=== PATIENT | male | born 1925 | race American Indian/Alaskan Native ===

== ENCOUNTER 2016-05-16 06:57 | Inpatient (IN) | payer MEDICARE ==
[~2016-05-16] VITALS: Ht 167.6 cm; Wt 50.2 kg
[~2016-05-16 06:57] MED LIST: ASPI-621 PO; ATOR40TA78 PO; CARV12.52 PO; CARV6.252 PO; CLOP75TA PO; ENOX40SY4 SQ; ERTA1VIA IV; FINA5TAB4 PO; FOSF3PAC PO; FURO20TA3 PO; Ferrous Sulfate PO; LEVO100T5 PO; LEVO75TA PO; LISI-167 PO; LISI-170 PO; LISI5TAB7 PO; NITR0.4T SL; POTA20TA14 PO; SIMV10TA3 PO; TAMS-11 PO
[2016-05-16 08:42] LABS: BLOOD UREA NITROGEN 17 mg/dL (7-18)
[2016-05-16 08:47] LABS: IS PT STATUS REG ER OR PRE ER? YES
[2016-05-16] MEDS ORDERED: BISACODYL 10 MG SUPP PR PRN (10:30)
[2016-05-16] MEDS ORDERED: DOCUSATE 100 MG CAPSULE PO PRN (10:30)
[2016-05-16] MEDS ORDERED: LABETALOL 5MG/ML, 20ML IV PRN (10:30)
[2016-05-16] MEDS ORDERED: ONDANSETRON 2MG/ML, 2ML IVP PRN (10:30)
[2016-05-16] MEDS ORDERED: ACETAMINOPHEN 325 MG TABLET PO PRN (10:30)
[2016-05-16] MEDS ORDERED: HYDROcodone/APAP 5/325 TABLET PO PRN (10:30)
[2016-05-16] MEDS ORDERED: MORPHINE SULFATE 4 MG/ML, 1ML IVPush PRN (10:30)
[2016-05-16] MEDS ORDERED: POLYETHYLENE GLYCOL 17 GM PACKET PO PRN (10:30)
[2016-05-16 10:45] VITALS: BP 157/81
[2016-05-16] MEDS: FUROSEMIDE 40 MG/4 ML IV SCH (11:10)
[2016-05-16] MEDS: ENOXAPARIN 40 MG/0.4 ML SQ SCH (11:10)
[2016-05-16 11:52] LABS: IS PT STATUS REG ER OR PRE ER? NO
[2016-05-16 12:44] VITALS: BP 169/75
[2016-05-16 17:06] LABS: IS PT STATUS REG ER OR PRE ER? NO
[2016-05-16] MEDS ORDERED: CARV3.1212 PO (19:57)
[2016-05-16] MEDS ORDERED: CEPH-376 PO (19:57)
[2016-05-16] MEDS ORDERED: POTA10TA11 PO (19:57)
[2016-05-16] MEDS ORDERED: LEVO100T5 PO (19:57)
[2016-05-16 20:06] VITALS: BP 107/64
[2016-05-16] MEDS: POTASSIUM CHLORIDE 20 MEQ TAB.ER.PRT PO SCH (23:42)
[2016-05-16] MEDS: SODIUM CHLORIDE FLUSH 10ML SYR IVF SCH (23:43)
[2016-05-16] MEDS: CARVEDILOL 6.25 MG TABLET PO SCH (23:43)
[2016-05-16] MEDS: LISINOPRIL 10 MG TABLET PO SCH (23:43)
[2016-05-16 23:56] LABS: PATH.CAST-FLAG NOT PRESENT; SPERM-FLAG NOT PRESENT; SRC-FLAG NOT PRESENT; XTAL-FLAG NOT PRESENT; YLC-FLAG NOT PRESENT
[2016-05-17 01:28] VITALS: BP 97/61
[2016-05-17 01:57] LABS: BLOOD UREA NITROGEN 24 mg/dL (7-18)
[2016-05-17] MEDS: CEFTRIAXONE PMX 1GM/50ML 50 ML IV SCH (03:06)
[2016-05-17] MEDS: CARVEDILOL 6.25 MG TABLET PO SCH (06:00)
[2016-05-17 06:36] VITALS: BP 105/63
[2016-05-17] MEDS: FUROSEMIDE 40 MG/4 ML IV SCH (10:32)
[2016-05-17] MEDS: POTASSIUM CHLORIDE 20 MEQ TAB.ER.PRT PO SCH ×2 (10:32→16:38)
[2016-05-17] MEDS: ENOXAPARIN 40 MG/0.4 ML SQ SCH (10:33)
[2016-05-17] MEDS: LISINOPRIL 10 MG TABLET PO SCH (10:33)
[2016-05-17] MEDS: SODIUM CHLORIDE FLUSH 10ML SYR IVF SCH ×2 (10:33→21:00)
[2016-05-17 10:34] VITALS: BP 77/44
[2016-05-17 12:18] VITALS: BP 85/54
[2016-05-17 13:14] VITALS: BP 102/66
[2016-05-17 19:31] VITALS: BP 101/58
[2016-05-18 00:30] VITALS: BP 109/67
[2016-05-18] MEDS: CEFTRIAXONE PMX 1GM/50ML 50 ML IV SCH (01:39)
[2016-05-18] MEDS ORDERED: LABETALOL 5MG/ML, 20ML IV PRN (03:52)
[2016-05-18 07:13] LABS: BLOOD UREA NITROGEN 31 mg/dL (7-18)
[2016-05-18 07:49] VITALS: BP 98/49
[2016-05-18] MEDS: FUROSEMIDE 40 MG/4 ML IV SCH (09:26)
[2016-05-18] MEDS: POTASSIUM CHLORIDE 20 MEQ TAB.ER.PRT PO SCH ×2 (09:26→17:40)
[2016-05-18] MEDS: SODIUM CHLORIDE FLUSH 10ML SYR IVF SCH ×2 (09:26→21:23)
[2016-05-18] MEDS: ENOXAPARIN 40 MG/0.4 ML SQ SCH (11:17)
[2016-05-18 14:28] VITALS: BP 115/64
[2016-05-18 17:37] VITALS: BP 139/74
[2016-05-18] MEDS: CARVEDILOL 3.125 MG TABLET PO SCH (17:40)
[2016-05-18 18:40] VITALS: BP 110/62
[2016-05-19 01:43] VITALS: BP 96/56
[2016-05-19] MEDS: CEFTRIAXONE PMX 1GM/50ML 50 ML IV SCH (02:41)
[2016-05-19 06:35] LABS: BLOOD UREA NITROGEN 30 mg/dL (7-18)
[2016-05-19] MEDS: CARVEDILOL 3.125 MG TABLET PO SCH ×2 (06:37→17:18)
[2016-05-19 06:55] VITALS: BP 93/53
[2016-05-19] MEDS: POTASSIUM CHLORIDE 20 MEQ TAB.ER.PRT PO SCH ×2 (09:14→17:18)
[2016-05-19] MEDS: ASPIRIN 81 MG TABLET EC PO SCH (09:14)
[2016-05-19] MEDS: SODIUM CHLORIDE FLUSH 10ML SYR IVF SCH ×2 (09:14→21:00)
[2016-05-19] MEDS: ENOXAPARIN 40 MG/0.4 ML SQ SCH (09:14)
[2016-05-19 13:21] VITALS: BP 92/50
[2016-05-19] MEDS ORDERED: FOSFOMYCIN 3 GM PACKET PO ONE (13:30)
[2016-05-19 17:18] VITALS: BP 106/59
[2016-05-19 20:00] VITALS: BP 93/49
[2016-05-20 02:00] VITALS: BP 133/66
[2016-05-20] MEDS: ASPIRIN 81 MG TABLET EC PO SCH (05:19)
[2016-05-20] MEDS: CARVEDILOL 3.125 MG TABLET PO SCH ×2 (05:19→17:40)
[2016-05-20 06:13] LABS: BLOOD UREA NITROGEN 27 mg/dL (7-18)
[2016-05-20 08:48] VITALS: BP 131/76
[2016-05-20] MEDS: POTASSIUM CHLORIDE 20 MEQ TAB.ER.PRT PO SCH ×2 (09:29→17:40)
[2016-05-20] MEDS: SODIUM CHLORIDE FLUSH 10ML SYR IVF SCH ×2 (09:29→23:33)
[2016-05-20] MEDS: LISINOPRIL 5 MG TABLET PO SCH (09:30)
[2016-05-20] MEDS: ENOXAPARIN 40 MG/0.4 ML SQ SCH (11:27)
[2016-05-20 14:40] VITALS: BP 116/66
[2016-05-20 20:00] VITALS: BP 152/64
[2016-05-20 22:06] VITALS: BP 114/57
[2016-05-21 01:51] VITALS: BP 121/63
[2016-05-21] MEDS: CARVEDILOL 3.125 MG TABLET PO SCH (05:46)
[2016-05-21] MEDS: ASPIRIN 81 MG TABLET EC PO SCH (05:46)
[2016-05-21 07:31] VITALS: BP 132/66
[2016-05-21] MEDS ORDERED: FURO-93 PO (09:36)
[2016-05-21] MEDS ORDERED: ASPI-621 PO (09:36)
[2016-05-21] MEDS ORDERED: LISI5TAB7 PO (09:36)
[2016-05-21] MEDS: LISINOPRIL 5 MG TABLET PO SCH (09:51)
[2016-05-21] MEDS: POTASSIUM CHLORIDE 20 MEQ TAB.ER.PRT PO SCH (09:51)
[2016-05-21] MEDS: SODIUM CHLORIDE FLUSH 10ML SYR IVF SCH (09:51)
== END 2016-05-21 11:23 | disposition hospice, home (50) | DRG 291 ==
LOC: ED 08:34 → EDIP 09:15 → 5SO 10:34 → 4WST 05-18 18:09
PROVIDERS: ADMIT Hospitalist; ATTEND Hospitalist
PROC: 0T9B70Z Drainage of Bladder with Drainage Device, Via Natural or Artificial Opening (ICD-10-PCS; principal; 2016-05-16)
DX: I50.23 Acute on chronic systolic (congestive) heart failure (principal); E43 Unspecified severe protein-calorie malnutrition; Z68.1 Body mass index [BMI] 19.9 or less, adult; N39.0 Urinary tract infection, site not specified; I11.0 Hypertensive heart disease with heart failure; I25.5 Ischemic cardiomyopathy; I25.10 Atherosclerotic heart disease of native coronary artery without angina pectoris; N40.0 Benign prostatic hyperplasia without lower urinary tract symptoms; E03.9 Hypothyroidism, unspecified; D64.9 Anemia, unspecified; I95.9 Hypotension, unspecified; Z16.12 Extended spectrum beta lactamase (ESBL) resistance; Z91.19 Patient's noncompliance with other medical treatment and regimen; Z95.810 Presence of automatic (implantable) cardiac defibrillator; I25.2 Old myocardial infarction; Z90.49 Acquired absence of other specified parts of digestive tract
CPT/HCPCS: 36415; 71010; 74176; 80048; 80061; 81001; 82040; 83880; 84439; 84443; 84484; 85025; 85610; 87040; 87077; 87086; 87186; 93005; C8929; J0696; J1650; J1940